=== PATIENT | female | born 1970 | race Caucasian/White ===

== ENCOUNTER 2017-02-14 10:50 | Inpatient (IN) | payer BC ==
--- NOTE | ~2017-02-14 | CR63 ---
[facility] A Service of [facility] RADIOLOGY TEXT RESULTS PATIENT: TONNY HENSON LOCATION: [facility] 576-01 : 72 UNIT #: [id number] AGE: [address]: DIMA ROMERO MD SEX: F ORDER DR: [id number] [place] [address] [id number] E MR#: [id number] Acc #: [id number] NAME: TONNY HENSON : 1970 SEX: F STUDY DATE/TIME: 02/14/2017 13:36 UNIT: SED ROOM: STUDY DESCRIPTION: CR Chest 2 View Attending Physician: Renzo Ray M.D. Ordering Physician: Renzo Ray M.D. Primary Care Physician: No Primary Care Physician MEDICAL IMAGING REPORT This report is preliminary unless electronic signature is present. EXAM Chest 2 views 02/14/2017 1336 hours CLINICAL HISTORY 46-year-old woman with cough, shortness of air, swelling in both lower extremities and feet for 1-2 weeks. History of prior kidney cancer. COMPARISON Chest x-ray 12/07/[address] abdomen and pelvis 02/14/2017. FINDINGS Upright PA and lateral views of the chest demonstrate slightly low lung volumes. Heart size is within normal limits. Hilar contours are normal. There is elevation of the right hemidiaphragm similar to the prior study. There is no definite acute pulmonary density or pleural effusion. IMPRESSION No acute cardiopulmonary findings. Stable elevation of the right hemidiaphragm. Dictated by... Bernarda Alberto M.D. THIS IS AN ELECTRONICALLY VERIFIED REPORT Bernarda Alberto M.D. at 02/14/2017 7:31 PM AMELIA/mariela TD: 02/14/2017 16:12 JOB #: [id number] MEDICAL IMAGING REPORT [facility] A Service of [facility] RADIOLOGY TEXT RESULTS PATIENT: TONNY HENSON LOCATION: [facility] 576-01 : 72 UNIT #: [id number] AGE: [address]: DIMA ROMERO MD SEX: F ORDER DR: Page 1 of 1
--- NOTE | ~2017-02-14 | CO ---
Unit #: [id number] #: [id number] Patient: TONNY HENSON [id number] [facility] [address] [place], [place] [address] [id number] I MR#: [id number] NAME: TONNY HENSON ROOM: 576 Age: 46 Sex: F Admission Date: 02/14/2017 : 1970 Attending Physician: Tejal Negron M.D. Primary Care Physician: Primary Care Physician No Consultation Date: 02/15/2017 CONSULTATION REPORT CHIEF COMPLAINT Jaundice. HISTORY OF PRESENT ILLNESS This is a 46-year-old lady, who went to the ER yesterday at [facility] for jaundice and swelling. She was transferred to [facility] for further workup. She first noticed that a couple of weeks ago that started with some scleral icterus. She then became progressively more jaundice and noted dark urine. She also complained of some edema in her bilateral lower extremities. We were asked to see the patient specifically for gallstones. She denies any trouble eating and denies any nausea. She has some mild abdominal discomfort when question specifically about it, but states there is nothing she would have sought medical attention for. PAST SURGICAL HISTORY She has had a prior gastric bypass and a left partial nephrectomy secondary to renal cell cancer. PAST MEDICAL HISTORY Significant for fatty liver and psoriasis. ALLERGIES She has no known drug allergies. MEDICATIONS Please see med rec list for list of medications. FAMILY HISTORY Negative for cancer. SOCIAL HISTORY She has a daily one intake. History of tobacco use in the past, but none now. She tested positive for marijuana on her tox screen. REVIEW OF SYSTEMS Significant for dark urine. She denies any weight loss or fevers. PHYSICAL EXAMINATION VITAL SIGNS: Temperature is 98.7, heart rate is 91, respiratory rate is 20, blood pressure is 113/58. HEENT: She has scleral icterus. There is no other trauma. NECK: Without masses or bruits. LUNGS: Show good breath sounds bilaterally with equal air exchange. CARDIAC: Shows regular rate and rhythm without murmur. Unit #: [id number] #: [id number] Patient: TONNY HENSON ABDOMEN: Soft. She has some mild distention. There is no tenderness to deep palpation. There are no masses. EXTREMITIES: Without edema or cyanosis. NEUROLOGIC: She is alert and oriented. There are no focal deficits. SKIN: Exam confirms jaundice. DIAGNOSTIC STUDIES LABORATORY RESULTS: She has multiple lab abnormalities including potassium 2.8. Ammonia of 64, albumin of 1.8, total bilirubin of 18, alkaline phosphatase 217. Hemoglobin of 7.2, white count of 8, and platelet count of 122. IMAGING STUDIES: CT scan showed hepatomegaly with some body wall edema and some abdominal and pelvic ascites. There was some gallstones versus sludge identified. She has also undergone prior left nephrectomy. Her ultrasound showed some mild gallbladder wall thickening and prominence of the main bile duct and it showed gallbladder findings more consistent with sludge and then discrete stones. OVERALL IMPRESSION This is a 46-year-old lady, who likely has alcoholic cirrhosis. She also has gallstones which were likely incidental. My plan is to check a HIDA scan to rule out acute cholecystitis. We will also follow up on hepatitis panel. She is on a potassium protocol and GI will see her for long-term management of her cirrhosis. Further recommendations are to follow. Dictated by... Theo Forman III, M.D. VCL/kezia TD: 02/16/2017 06:21 JOB #: [id number] CONSULTATION REPORT Page 1 of 1 X Theo Forman III, MD CONSULTATION REPORT
--- NOTE | ~2017-02-14 | NM21 ---
[facility] A Service of [facility] RADIOLOGY TEXT RESULTS PATIENT: TONNY HENSON LOCATION: [facility] 576-01 : 72 UNIT #: [id number] AGE: [address]: Tejal Negron MD SEX: F ORDER DR: [id number] [facility] [address] [facility]. [place], [place] [address] [id number] I MR#: [id number] Acc #: [id number] NAME: TONNY HENSON : 1970 SEX: F STUDY DATE/TIME: 02/16/2017 8:20 UNIT: [facility] ROOM: [facility] STUDY DESCRIPTION: NM Hepatobiliary W GB Attending Physician: Tejal Negron M.D. Ordering Physician: Theo Forman III, M.D. Primary Care Physician: No Primary Care Physician MEDICAL IMAGING REPORT This report is preliminary unless electronic signature is present EXAM Radionuclide biliary scan. HISTORY Abdominal pain, jaundice, short of air, swelling, fatigue for 3 weeks. No known trauma. TECHNIQUE Following intravenous administration of 6 mCi technetium-99m Choletec, static images of the abdomen were obtained at 30-minute intervals for 60 minutes. 90 and 120-minute images also obtained. FINDINGS The study is abnormal. It is viewed in conjunction with CT examination 02/14/2017 and gallbladder ultrasound 02/15/2017. At 15 minutes post administration, there is radiotracer seen throughout the liver. Radiotracer persists throughout the liver during the full 2 hours of the examination. This suggests significant underlying hepatic metabolic abnormality. Along the medial aspect of the mid liver at anticipated location of jill hepatis based on prior CT examination, there is a focal area of tracer accumulation seen at 60 minutes post administration. This persists, relatively unchanged throughout the remainder of the examination. On the basis of this examination, I cannot determine if this is gallbladder or common bile duct. Lateral views of the abdomen were not obtained to assist in differentiation. There is no structure seen which corresponds to the volume of the gallbladder on either the prior ultrasound or CT examination. I cannot on the basis of this examination exclude the possibility of acute cholecystitis. There does appear to be some passage of radiotracer into the bowel. Please correlate with the patient's clinical presentation and laboratory data. Weight should be given the clinical assessment relative to possibility of cholecystitis. IMPRESSION [facility] A Service of [facility] RADIOLOGY TEXT RESULTS PATIENT: TONNY HENSON LOCATION: [place] [address] : 72 UNIT #: [id number] AGE: [address]: Tejal Negron MD SEX: F ORDER DR: 1. Abnormal examination. Please see the complete dictation above for full details. Radiotracer remains largely within the liver throughout the full 2 hours of imaging. This suggests significant underlying hepatic metabolic abnormality. There is some passage of radiotracer into the bowel, indicating patency of the common bile duct. 2. Beginning at 60 minutes post tracer administration, there is a focal area of radiotracer seen in the inferior aspect of the central liver in the region of jill hepatis seen on CT examination. This focus of radiotracer activity does not alter between 60 and 120 minutes. It does not have an appearance concordant with the volume of the gallbladder on either the prior CT or ultrasound. It is possible that this represents radiotracer within the common duct. Given the limitations of this examination, I cannot exclude the possibility of acute cholecystitis in this patient. Please correlate with the patient's clinical presentation and laboratory data. Weight should be given clinical assessment relative to possibility of acute cholecystitis. Dictated by... Denilson Fox M.D. THIS IS AN ELECTRONICALLY VERIFIED REPORT Denilson Fox M.D. at 02/17/2017 6:12 PM TANG/rocio TD: 02/16/2017 13:40 JOB #: [id number] MEDICAL IMAGING REPORT Page 1 of 1 COPY
--- NOTE | ~2017-02-14 | XA166 ---
[facility] A Service of [facility] RADIOLOGY TEXT RESULTS PATIENT: TONNY HENSON LOCATION: [facility] [address] : 72 UNIT #: [id number] AGE: [address]: Tejal Negron MD SEX: F ORDER DR: [id number] [facility] [address]. [place], [place] [address] [id number] I MR#: [id number] Acc #: [id number] NAME: TONNY HENSON : 1970 SEX: F STUDY DATE/TIME: 02/15/2017 14:58 UNIT: [facility] ROOM: [facility] STUDY DESCRIPTION: XA PICC Line Placement WO Port Attending Physician: Tejal Negron M.D. Ordering Physician: Tejal Negron M.D. Primary Care Physician: No Primary Care Physician MEDICAL IMAGING REPORT This report is preliminary unless electronic signature is present EXAM PICC line placement under ultrasound and fluoroscopy. HISTORY SUPPLIED No venous access. PRE-PROCEDURE The procedure was explained to the patient and/or patient fuels sales representative including risks, benefits, potential complications and potential for alternative forms of treatment. Informed consent was obtained, and prior to initiating the procedure a formal timeout procedure was performed. PROCEDURE Using full standard sterile barrier technique, including caps, gowns, gloves, masks, as well as sterile skin preparation and standard sterile draping, the right arm (brachial vein) was prepped and draped in the usual fashion, and real-time sterile ultrasound guidance was used to localize an arm vein and to confirm vessel patency. A hard copy ultrasound image was recorded. After local anesthesia with 1% Xylocaine, the vein was punctured using real-time sterile ultrasound guidance, and an 0.018 guidewire was advanced into the superior vena cava, using fluoroscopic guidance. A 5-Azerbaijani dual-lumen (37 cm trim length) PICC was then measured and deployed with the tip positioned in the cavoatrial junction. The position of the line was documented with a radiographic image. The line was secured in place with an adhesive dressing and an antibiotic patch was applied. Total fluoro time was 0.2 minutes. Exposure 2 mGy air derma. Single spot radiograph was obtained. IMPRESSION Successful placement of a 5-Azerbaijani dual-lumen (37 cm trim length) PowerPICC via the right arm (brachial vein) under ultrasound and STS. [facility] A Service of [facility] RADIOLOGY TEXT RESULTS PATIENT: TONNY HENSON LOCATION: [facility] 576-01 : 74 UNIT #: [id number] AGE: [address]: Tejal Negron MD SEX: F ORDER DR: fluoroscopic guidance. The tip of the PICC is in good position in the cavoatrial junction. A single fluoroscopic spot image was obtained. Dictated by... Denilson Stallworth M.D. THIS IS AN ELECTRONICALLY VERIFIED REPORT Denilson Stallworth M.D. at 02/17/2017 7:14 AM VANI/shankar TD: 02/15/2017 18:05 JOB #: [id number] MEDICAL IMAGING REPORT Page 1 of 1 COPY
--- NOTE | ~2017-02-14 | CO ---
Unit #: [id number] #: [id number] Patient: TONNY HENSON [id number] [address] [place], [place] [address] [id number] I MR#: [id number] NAME: TONNY HENSON ROOM: 6 Age: 46 Sex: F Admission Date: 02/14/2017 : 1970 Attending Physician: Tejal Negron M.D. Primary Care Physician: No Primary Care Physician Consultation Date: 02/16/2017 CONSULTATION REPORT REASON FOR CONSULTATION Hyponatremia. HISTORY OF PRESENT ILLNESS Patient is a 46-year-old white female, who is previously status post left partial nephrectomy for renal cell CA, history of fatty liver, and transferred for jaundice. Also, complaints of fatigue and swelling in the body, especially in the feet and ankles. No history of abdominal pain. No history of fevers or chills. No history of diarrhea. No history of vomiting. There is a vague history of bleeding per rectum. The patient on admission was noted to have a sodium level of 121 with a bilirubin of 23.3. CT scan revealing diffuse hepatic steatosis and markedly enlarged to 22 cm. Also, sludge in the gallbladder with pericholecystic fluid secondary to ascites versus acute cholecystitis for which (1) is working her up. Patient has been started on Lasix this morning. Sodium level is 129. Patient does have previous history of gastric bypass. No noted NSAIDs, thiazides, SSRIs in her home medications. PAST MEDICAL HISTORY 1. Renal cell CA, status post left partial nephrectomy two years ago. 2. History of fatty liver. 3. Gastric bypass. 4. History of psoriasis. ALLERGIES No known drug allergies. HOME MEDICATIONS 1. B12. 2. P.r.n. ibuprofen. FAMILY HISTORY Unremarkable for end-stage renal disease or any liver problems. SOCIAL HISTORY Patient lives at home and drinks regularly and has been for several years, is a reformed smoker. No history of intravenous drug use. REVIEW OF SYSTEMS CARDIOVASCULAR: No chest pain. RESPIRATORY: Cough with minimal expectoration. GASTROINTESTINAL: As above. GENITOURINARY: No hematuria. No dysuria. Unit #: [id number] #: [id number] Patient: TONNY HENSON PHYSICAL EXAMINATION GENERAL: Patient is awake, alert, and oriented. VITAL SIGNS: Temperature is 98.4, heart rate is 93/min, blood pressure 102/52, saturation 98%. HEENT: Head is atraumatic. Extraocular movements are intact. Sclerae are markedly icteric with jaundiced skin. Nose: No discharge. Ears: No discharge. NECK: Supple. There is no elevation of the JVD. LUNGS: The chest is clear. Air entry is equal bilaterally. Breathing is vesicular in nature. HEART: S1, S2 audible. There is no S3, no S4. ABDOMEN: Soft. There is no organomegaly. No guarding. No rigidity. No rebound tenderness. EXTREMITIES: There is 2 to 3+ edema. CENTRAL NERVOUS SYSTEM: Motor system is intact. Cerebellar system is intact. DIAGNOSTIC STUDIES LABORATORY: The urine culture has gram-positive and gram-negative ros, likely contaminated specimen. The sodium is 129, potassium 3.4, chloride 99, CO2 of 20, glucose 87, creatinine 0.6, BUN 13, calcium 8.5. Total bilirubin 20 with an albumin of 2, phosphorous 2.7, magnesium is 1.8. WBC 9.9, H and H 8.1 and 23.9 with a platelet count of 149,000. IMPRESSION 1. Hyponatremia, likely secondary to marked increase in (2) and hyperosmolar hyponatremia. Will restrict the IV fluids and p.o. fluids to 1 L a day, increase the Lasix to 40 mg daily, and request to refrain from thiazides and nonsteroidal anti-inflammatory use. I will check urine and serum osmolality for ADH state. 2. Hypokalemia, likely nutritional. Supplement potassium and increase to give on a scheduled basis concomitantly with Bumex. Supplement magnesium and phosphorous per levels. 3. Hyperbilirubinemia: Attributed to cirrhosis/nonalcoholic steatohepatitis as per GI evaluation. 4. Pericholecystic fluid and sludge being worked up with surgery and is scheduled for HIDA scan. 5. Nonanion gap metabolic acidosis, likely underlying gastrointestinal losses contributing to that. 6. Macrocytic anemia with decreased folate levels, folic acid deficiency. Patient has been started on folate. 7. Hypertension: Will follow the patient. Dictated by... Ken Zelaya TD: 02/16/2017 12:00 JOB #: [id number] Unit #: [id number] #: [id number] Patient: TONNY HENSON CONSULTATION REPORT Page 1 of 1 X Warren Kimbrough MD CONSULTATION REPORT
--- NOTE | ~2017-02-14 | CO ---
Unit #: [id number] #: [id number] Patient: TONNY HENSON [id number] [facility] [address] [place] [address] [facility]. [place], [place] [address] [id number] I MR#: [id number] NAME: TONNY HENSON ROOM: 576 Age: 46 Sex: F Admission Date: 02/14/2017 : 1970 Attending Physician: Tejal Negron M.D. Primary Care Physician: No Primary Care Physician Consultation Date: 02/15/2017 CONSULTATION REPORT REASON FOR CONSULTATION Deep jaundice. HISTORY Ms. Henson is a very pleasant 46-year-old white female. 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 Her job is not very active, and she mostly has to walk around a little bit and then sit a room watching a computer. She has not worked for at least 2 weeks. She presents with worsening jaundice and generalized anasarca with edema of lower extremities, swelling of lower extremities and extreme fatigue. Upon admission she has been found to have deep jaundice, along with coagulopathy and hypokalemia. The patient denies any history of overt gastrointestinal bleed, such as hematemesis, melena or hematochezia. She was initially seen at [facility]. From there she was transferred to [facility]. The patient does drink quite heavily on most days after work and has been doing it for many years, along with her fiance, who also drinks quite a bit. PAST MEDICAL HISTORY Her past medical history is significant for history of fatty liver, gastric bypass surgery about 15 years ago. She has had psoriasis, oral surgery, renal cell carcinoma status post partial nephrectomy 2 years ago. ALLERGIES She has no known drug allergies. MEDICATIONS Home medications include occasional ibuprofen, milk thistle, B12 and Jazmin. FAMILY HISTORY None of colon or pancreatic cancer or liver disease. SOCIAL HISTORY The patient lives with her fiance. She drinks almost 3/4 to 1 bottle of wine on a daily basis and has been drinking heavily for many years. She does not smoke at the present but used to smoke in the past. Has never used intravenous drugs. REVIEW OF SYSTEMS A detailed review of organ systems reveals new onset of jaundice and extreme fatigue. There is no history of any significant weight loss. No history of fevers, chills or rigors. No history of headache, seizures, Unit #: [id number] #: [id number] Patient: NATIVIDAD,TONNY chest pain or syncope. No history of cough, expectoration or hemoptysis. There is history of shortness of breath. No history of dysuria, hematuria or polyuria. No history of focal seizures or extremity weakness. No history of skin rash, aphthous ulcers in the mouth or reactive arthritis. PHYSICAL EXAMINATION GENERAL: On examination, she appears quite pleasant, comfortable and obese. She has loaw-hs-nhnybcfw pallor, there being deep icterus, no lymphadenopathy and grade 3 pitting peripheral edema. VITAL SIGNS: Her vital signs indicate a temperature of 98.4, pulse 93 per minute and regular, respiratory rate 16, and blood pressure is 102/52. She weighs 210 pounds, and we do not have any baseline weight. CARDIOVASCULAR: Normal heart sounds. No murmurs on auscultation. RESPIRATORY: The lungs reveal normal breath sounds, good air entry. ABDOMEN: The abdomen is soft, obese and nontender. Minimal ascites might be present. The liver edge is palpable about 4 cm below the right costal margin, firm, smooth and nontender. The spleen is not palpable. Bowel sounds are normal. No area of rigidity, rebound or guarding is felt. (1) normal. DIAGNOSTIC STUDIES LABORATORY: Lab evaluation shows patient with total bilirubin of 18.3. It was 23 yesterday. There is 50/50 split between direct and indirect hyperbilirubinemia. Her AST is 191, ALT 41, alkaline phosphatase 217. Serum potassium is 2.8, and sodium is 124. Blood glucose is 84. BUN and creatinine are normal. Hemoglobin is 7.2 with an MCV of 111, and platelet count is 122. INR is 1.5. Hepatitis serology is pending. CLINICAL IMPRESSION Patient most likely has advanced liver disease and cirrhosis as a result of alcoholic hepatitis. Other possibilities include FARFAN related cirrhosis and the two may be concomitantly present. The patient may also have autoimmune hepatitis. She does have significant hyponatremia, hypokalemia, coagulopathy and thrombocytopenia indicating advanced liver disease. Lastly, she has severe intrahepatic cholestasis as evidenced by bilirubin. MANAGEMENT PLAN 1. The single most important element in her management and long-term prognosis is complete and total sobriety. Considerable time was spent with the patient explaining that she has to completely stop alcohol, and any kind of substitution with low alcohol substitutes will not work. Also, cutting down on alcoholic intake will not work, as she has proven herself to be an alcoholic. 2. Will treat her with low dose of diuretics, starting her on Aldactone and Lasix at doses of 100 mg and 40 mg for now. Also will obtain an upper endoscopy to look for esophageal varices. Lastly, the patient should be on a 2-gram sodium diet with high protein carbohydrates. Will also obtain a serum alpha-fetoprotein, smooth-muscle antibody and DARIN to rule out autoimmune hepatitis. The results of hepatitis profile are pending. As these labs are likely to take 5-7 days, it would be reasonable for the patient to be discharged home and follow up in the office for these results. Thank you very much for asking me to see this pleasant patient, and I appreciate the consult. Unit #: [id number] #: [id number] Patient: TONNY HENSON Dictated by... Ken Rivas/doc TD: 02/18/2017 12:07 JOB #: [id number] CONSULTATION REPORT Page 1 of 1 X Gregory Castillo MD X CONSULTATION REPORT
--- NOTE | ~2017-02-14 | DS ---
Unit #: [id number] #: [id number] Patient: TONNY HENSON [id number] [address] [address] [id number] I MR#: [id number] NAME: TONNY HENSON ROOM: 576 Age: 46 Sex: F Admission Date: 02/14/2017 : 1970 Discharge Date: Attending Physician: Tejal Negron M.D. Primary Care Physician: No Primary Care Physician DISCHARGE SUMMARY DISCHARGE DIAGNOSES 1. Cirrhosis, likely terminal with long-term prognosis very poor. 2. Likely nonalcoholic steatohepatitis. 3. Fluid overload from cirrhosis. 4. Anemia of chronic iron deficiency. 5. Abnormal ultrasound on HIDA scan showing acute cholecystitis. According to GI, patient has gallbladder wall thickening likely from cirrhosis, very high risk of endoscopic retrograde cholangiopancreatography or cholecystectomy. 6. Hypernatremia secondary to cirrhosis. 7. Coagulopathy from cirrhosis. 8. Hypokalemia. 9. Alcohol dependence. 10. Hypothyroidism. 11. Severe protein malnutrition. 12. Low folate level. 13. Hepatic encephalopathy on admission. 14. Renal cell carcinoma, status post partial nephrectomy two years ago. 15. History of psoriasis. 16. History of morbid obesity. 17. History of gastric bypass in 2001. 18. Fatty liver. 19. Metabolic acidosis. 20. Mild acute pancreatitis present on admission. CONSULTATIONS 1. Dr. Gregory Castillo. 2. LSA. 3. Dr. Warren Kimbrough. PROCEDURE None. DIAGNOSTIC STUDIES LABORATORY: Free T4 is 0.94. Free T3 is 2.1. WBC 10.2, hemoglobin 8, platelets 135,000. Urine culture negative. TSH 7.40. Folate level 3.6. Vitamin B12 at 1063. Ammonia 64. Urine drug screen positive for marijuana. BNP 179. Lactic acid 1.7. IMAGING: Ultrasound of the abdomen shows gallbladder filled with sludge. No discrete stones. Gallbladder wall thickening present, likely positive for acute cholecystitis. HIDA scan shows abnormal, likely acute cholecystitis. Unit #: [id number] #: [id number] Patient: TONNY HENSON Ultrasound of the extremities negative for DVT. CAT scan of the abdomen and pelvis shows hepatomegaly, diffuse hepatic steatosis. Generalized abdominal wall edema present. Gallbladder sludge with gallbladder wall thickening present. Mild splenomegaly present. ALLERGIES None. DISCHARGE MEDICATIONS 1. Lactulose 20 g p.o. daily. 2. Robitussin 10 mL three times daily p.r.n. cough over the counter. 3. Lasix 40 daily. 4. Aldactone 100 daily. 5. Potassium 40 mEq daily. 6. Synthroid 25 mcg p.o. daily. 7. Folic acid 1 mg daily. 8. Albuterol MDI two puffs inhalation four times daily p.r.n. shortness of breath. HOSPITALIZATION COURSE A 46 year old admitted because of jaundice. Cirrhosis, likely end stage from alcohol. Also, she might have FARFAN with severe jaundice and likely portal hypertension. Patient is seen by Dr. Gregory Castillo. Patient was started on Lasix and spironolactone. Hepatic encephalopathy with mild elevated ammonia. Lactulose has been given. Currently, patient is alert and oriented x3. Abnormal gallbladder wall thickening with HIDA scan abnormality. The patient is seen by LSA and Dr. Gregory Castillo. Patient is high risk of ERCP or high risk of cholecystectomy. Currently, continue with medical management. Patient is tolerating diet okay. No abdominal pain. Wants to go home. Tolerating diet. No vomiting. Hypernatremia, likely from cirrhosis. Lasix has been started, currently stable. Coagulopathy secondary to cirrhosis. Anemia, acute on chronic iron deficiency, no active bleeding. Hypokalemia: Replace with p.o. potassium. Hypothyroidism: Started on Synthroid. Low folate level: Started on folic acid. Alcohol dependence: Patient currently not in delirium tremens. DISPOSITION Patient will be discharged home after seen by Dr. Gregory Castillo. FOLLOWUP 1. Follow with Dr. Warren Kimbrough, nephrology, in two weeks' time. 2. Follow with Dr. Castillo in three weeks' time. Unit #: [id number] #: [id number] Patient: TONNY HENSON PROGNOSIS Long-term prognosis is poor because of cirrhosis. Patient does have alcohol dependence and marijuana abuse. Discharge time taken is 35 minutes. Dictated by... Ken Pepe TD: 02/17/2017 17:13 JOB #: [id number] DISCHARGE SUMMARY Page 1 of 1 X Tejal Negron MD DISCHARGE SUMMARY
--- NOTE | ~2017-02-14 | HP ---
Unit #: [id number] #: [id number] Patient: TONNY HENSON [id number] [address] [place], [place] [address] [id number] I MR#: [id number] NAME: TONNY HENSON ROOM: 576 Age: 46 Sex: F Admission Date: 02/14/2017 : 1970 Attending Physician: Blanca Kimbrough M.D. Primary Care Physician: No Primary Care Physician HISTORY AND PHYSICAL CHIEF COMPLAINT Jaundice, hyponatremia. HISTORY This pleasant 46-year-old female status post partial nephrectomy for renal cell cancer, with history of "fatty liver" and gastric bypass surgery, was transferred from [facility] emergency department for jaundice. The patient states that she was in her usual state of health until about three weeks prior to admission. Around that time she noted increasing fatigue, dyspnea on exertion, pedal edema, and that she at some point appeared to be more yellow with dark urine; denies abdominal pain with the above, states that she is always cold, does have a productive cough which is mainly upper and productive of yellow sputum. Upon direct questioning also admits to hematochezia with blood mixed in with the stool. She presented to [facility] this morning where labs show a sodium of 121, bilirubin of 23.3, macrocytic anemia. On rectal examination she has trace heme positive jelly. A CT scan performed shows significant hepatomegaly up to 22.8 cm with diffuse hepatic steatosis and evidence of edema. There is a small quantity of gallstones and/or in gallbladder sludge. Patient is status post gastric bypass. She was drinking two large glasses of wine until about three weeks ago when she stopped drinking, denies previous injectable drug use. She was given 30 mL of lactulose for an elevated ammonia level of 90. She has noted some recent confusion as well, was also given a bolus of IV fluids. PAST MEDICAL HISTORY 1. Renal cell cancer, status post partial nephrectomy two years ago. 2. Fatty liver. 3. Gastric bypass 2001. 4. Oral surgery. 5. Psoriasis. ALLERGIES None. HOME MEDICATIONS B12, milk thistle, Jazmin and occasional ibuprofen. Patient does not use Tylenol. FAMILY HISTORY Family history is negative for liver disease. Unit #: [id number] #: [id number] Patient: TONNY HENSON SOCIAL HISTORY The patient lives with her fiance. Until three weeks ago she was drinking two large glasses of wine, does admit to brief alcohol abuse many years ago which was only for about a year or so, remote history of tobacco use, has never used injectable drugs. REVIEW OF SYSTEMS Notable for some sinus drainage and purulent upper cough, renal cell cancer, fatty liver, abovementioned surgeries, pedal edema, shortness of breath, some recent confusion and dark urine. All other systems were reviewed and are otherwise negative. PHYSICAL EXAMINATION GENERAL: Very pleasant 46-year-old female who is moderately obese, currently in no acute distress. VITAL SIGNS: Her temperature is 97.5. Pulse 89. Respirations 16. Blood pressure 144/86. O2 saturation 100% on room air. HEENT: Eyes PERRLA. Extraocular muscles are intact. Scleral icterus is noted. Pharynx is benign. NECK: Supple, without adenopathy or thyromegaly. CHEST: A few crackles at the bases. CARDIAC: Normal S1 and S2, without definite murmur. ABDOMEN: Bowel sounds are present. Well-healed scar noted. Patient does have hepatomegaly on exam. Nontender abdomen. No masses. EXTREMITIES: With at least 2+ bilateral pedal edema, negative Homans sign. SKIN: Skin reveals telangiectasias. NEUROLOGIC EXAM: Patient is awake, alert, oriented. Her cranial nerves are intact. There is equal strength throughout. No asterixis on exam. ANO-RECTAL: Of note rectal examination no masses. Jelly was trace heme positive. DIAGNOSTIC STUDIES LABORATORY: Admission labs show hematocrit is 25.4 without previous values for comparison, MCV is 111, normal white count, platelet count. SMA-12: Sodium 121, chloride 89, CO2 20, calcium 8.3, albumin 2.4, bilirubin is 23 both direct and indirect are elevated, AST 208, ALT 45, alkaline phosphatase 275, amylase is 72, lipase 124, BNP 179, ammonia level 90, lactic acid is normal. Urine tox screen positive for marijuana. Urinalysis unremarkable except for 1+ bacteria with a few squamous cells seen. IMAGING: Chest x-ray stable elevation of the right hemidiaphragm. CT scan of the abdomen and pelvis. Hepatomegaly with 22.8 cm liver diffuse hepatic steatosis. Generalized body wall edema with small quantity of abdominal and pelvic ascites. Small quantity of gallstones and/or gallbladder sludge. Trace pericholecystic fluid. Mild atelectatic changes. Mild splenomegaly. Partial nephrectomy. Mildly enlarged central mesenteric root lymph nodes which are nonspecific. Questionable colitis. ASSESSMENT 1. Jaundice in this patient with likely FARFAN (nonalcoholic steatohepatitis) and possibly liver disease related to alcohol use, but need to rule out other etiologies as well. 2. Bilateral pedal edema. 3. Likely hypervolemic hyponatremia. Unit #: [id number] #: [id number] Patient: TONNY HENSON 4. Hepatic encephalopathy. 5. Macrocytic anemia with complaints of hematochezia and trace heme positive stool. 6. Purulent sinus drainage with negative chest x-ray. 7. Complaints of dyspnea. 8. Status post partial nephrectomy for renal cell cancer. 9. Gastric bypass surgery. 10. Psoriasis. PLANS 1. Anemia workup. 2. Check hepatitis profile, DARIN, iron stores, gallbladder ultrasound, and ask GI to see in consultation. 3. Obtain TSH. 4. Check Dopplers of the legs. 5. Will order low dose Lasix for now as patient does seem to be fluid overloaded. 6. Lactulose, 7. SCDs for DVT prophylaxis. 8. Obtain EKG and echo. 9. Flonase nasal spray and doxycycline. 10. Further workup and consultants depending on above. Dictated by Adeline Hernandez M.D. AML/cf TD: 02/14/2017 21:00 JOB #: [id number] HISTORY AND PHYSICAL Page 1 of 1 X Adeline Hernandez MD X HISTORY AND PHYSICAL
--- NOTE | ~2017-02-14 | US84 ---
[id number] [facility] [address] [place], [place] [address] [id number] I MR#: [id number] Acc #: [id number] NAME: TONNY HENSON : 1970 SEX: F STUDY DATE/TIME: 02/15/2017 9:54 UNIT: [place] ROOM: 576 STUDY DESCRIPTION: US LE Veins Complete Mendoza Stdy Attending Physician: Tejal Negron M.D. Ordering Physician: Adeline Hernandez M.D. Primary Care Physician: Primary Care Physician No MEDICAL IMAGING REPORT This report is preliminary unless electronic signature is present EXAM Bilateral lower extreme Doppler venous ultrasound DATE: 02/15/2017 HISTORY Bilateral lower extremity swelling/edema and pain in the feet for two weeks COMPARISON None. TECHNIQUE Venous ultrasound examination of both lower extremities was performed using grayscale, spectral Doppler and color flow Doppler imaging. FINDINGS The examination is negative. There is no evidence of deep venous thrombus from the groin to the lower calf bilaterally. Visualized greater saphenous veins are also patent. IMPRESSION Negative examination. No evidence of lower extremity deep venous thrombosis. Dictated by... Lois Kraft M.D. THIS IS AN ELECTRONICALLY VERIFIED REPORT Lois Kraft M.D. at 02/16/2017 8:59 AM PRABHAKAR/ulises TD: 02/15/2017 13:52 JOB #: [id number] MEDICAL IMAGING REPORT Page 1 of 1 COPY
--- NOTE | ~2017-02-14 | EKG ---
PATIENT: TONNY HENSON UNIT #: [id number] Ventricular Rate: 94 BPM Atrial Rate: 94 BPM P-R Interval: 164 ms QRS Duration: 86 ms Q-T Interval: 566 ms QTC Calculation(Bezet): 707 ms P [place]: 48 degrees Calculated R [place]: 76 degrees Calculated T [place]: 78 degrees Diagnosis Line: Normal sinus rhythm Diagnosis Line: Low voltage QRS Diagnosis Line: Prolonged QT Diagnosis Line: Abnormal ECG Diagnosis Line: No previous ECGs available Diagnosis Line: Confirmed by SUSIE COHEN MD ([id number]) on Diagnosis Line: 02/15/2017 9:19:31 PM INTERPRETING MD: JUNE
--- NOTE | ~2017-02-14 | CT2 ---
[facility] A Service of [facility] RADIOLOGY TEXT RESULTS PATIENT: TONNY HENSON LOCATION: [facility] 576-01 : [birth year] UNIT #: [id number] AGE: [address]: Tejal Negron MD SEX: F ORDER DR: [id number] [address] [address] [id number] E MR#: [id number] Acc #: [id number] NAME: TONNY HENSON : 1970 SEX: F STUDY DATE/TIME: 02/14/2017 13:46 UNIT: SED ROOM: STUDY DESCRIPTION: CT Abd and Pelv W Cont Attending Physician: Renzo Ray M.D. Ordering Physician: Renzo Ray M.D. Primary Care Physician: No Primary Care Physician MEDICAL IMAGING REPORT This report is preliminary unless electronic signature is present. EXAM CT abdomen and pelvis with contrast, 02/14/2017. HISTORY 46-year-old female with bilateral extremity and foot swelling/edema with shortness of breath for 1-2 weeks. History of kidney cancer. History of gastric bypass. COMPARISON None. PROCEDURE 5-mm axial images from the lung bases through the lesser trochanters after intravenous and enteric contrast administration. Sagittal and coronal reformatted images were obtained. FINDINGS There is generalized body wall edema and small quantity ascites is present within the abdomen, greatest adjacent to the liver, and layering dependently within the pelvis. There are central congestive type changes within the mesentery. Mildly prominent central mesenteric root lymph nodes are present, 1 of the largest measuring up to 1.4 x 1.1 cm. Scattered atelectatic type changes are present within the lung bases without consolidation. No basilar effusion is identified. Liver is enlarged up to 22.8 cm craniocaudal and appears diffusely steatotic with more focal geographic fatty deposition within the enlarged caudate lobe. Spleen is enlarged measuring 14 cm craniocaudal. Gastric bypass changes are present, and there is no evidence of high-grade large or small bowel obstruction. There is mild thickening and questionable inflammatory change of the hepatic flexure of the colon. [facility] A Service of [facility] RADIOLOGY TEXT RESULTS PATIENT: TONNY HENSON LOCATION: [facility] 576-01 : [birth year] UNIT #: [id number] AGE: [address]: Tejal Negron MD SEX: F ORDER DR: There are clustered small ventral abdominal hernias in the upper abdomen containing only fat. There is a dominant ventral hernia in the supraumbilical midline upper abdomen containing only omental fat, and the hernia sac measures 6.1 x 6.1 cm. There is a defect in the left upper renal pole thought to represent some previous partial nephrectomy, and there is no evidence of local disease recurrence. Adrenal glands and pancreas are normal. Small gallstones versus gallbladder sludge is present without evidence of abnormal gallbladder wall thickening or biliary dilation. PELVIS: Trace pelvic free fluid. Urinary bladder, uterus, and rectum are normal. Generalized body wall edema. No acute osseous abnormalities. IMPRESSION 1. Hepatomegaly up to 22.8 cm, with diffuse hepatic steatosis. 2. Generalized body wall edema with small quantity of abdominal and pelvic ascites. 3. Small quantity of gallstones and/or gallbladder sludge. There is trace pericholecystic fluid which may be related to underlying ascites, but the gallbladder wall itself does not appear appreciably thickened or inflamed. This is not included in the body of the report. 4. Mild atelectatic changes within the lung bases. 5. Mild splenomegaly. 6. Partial left nephrectomy. No evidence of local disease recurrence in this patient with a history of renal cell carcinoma. 7. There are mildly enlarged central mesenteric root lymph nodes which are nonspecific and are favored to represent benign reactive changes. 8. Questionable infectious/inflammatory colitis changes involving the hepatic flexure of the colon. Correlate with clinical symptoms. Dictated by... Lois Kraft M.D. THIS IS AN ELECTRONICALLY VERIFIED REPORT Lois Kraft M.D. at 02/15/2017 8:48 AM PRABHAKAR/mauricio TD: 02/14/2017 17:34 JOB #: [id number] MEDICAL IMAGING REPORT Page 1 of 1
--- NOTE | ~2017-02-14 | US67 ---
[facility] A Service of [facility] RADIOLOGY TEXT RESULTS PATIENT: TONNY HENSON LOCATION: [facility] : 74 UNIT #: [id number] AGE: [address]: Tejal Negron MD SEX: F ORDER DR: [id number] [facility] [address] [place], [place] [address] [id number] I MR#: [id number] Acc #: [id number] NAME: TONNY HENSON : 1970 SEX: F STUDY DATE/TIME: 02/15/2017 9:33 UNIT: [facility] ROOM: [facility] STUDY DESCRIPTION: US Gallbladder Attending Physician: Tejal Negron M.D. Ordering Physician: Adeline Hernandez M.D. Primary Care Physician: No Primary Care Physician MEDICAL IMAGING REPORT This report is preliminary unless electronic signature is present EXAM Right upper quadrant abdominal ultrasound INDICATIONS Jaundice today. Abnormal appearance of the gallbladder on recent CT. PROCEDURE Price-scale and Doppler imaging right upper quadrant of the abdomen COMPARISON CT from 02/14/2017 FINDINGS Pancreas obscured by bowel gas and not well seen. The liver has diffusely increased echotexture AND measures 22.1 cm in length. The gallbladder contains sludge, but no discrete stones. Gallbladder wall IS thickening up to 9 mm. Common duct measures 7 mm. Right kidney measures 13.2 cm and is unremarkable. IMPRESSION 1. The gallbladder is filled with sludge, but no discrete stones are seen. There is gallbladder wall thickening and a positive sonographic Naranjo's sign suspicious for acute cholecystitis. 2. Prominence of the common duct for the patient's age. Correlate with laboratory values. If there is concern for a distal obstructing stone, MRCP or ERCP may be helpful. 3. Pancreas obscured by bowel gas. Dictated by... Yunier Maxwell M.D. THIS IS AN ELECTRONICALLY VERIFIED REPORT [facility] A Service [facility] RADIOLOGY TEXT RESULTS PATIENT: TONNY HENSON LOCATION: [facility] : 74 UNIT #: [id number] AGE: [address]: Tejal Negron MD SEX: F ORDER DR: Yunier Maxwell M.D. at 02/17/2017 1:54 PM GREGORY/mauricio TD: 02/15/2017 12:53 JOB #: [id number] MEDICAL IMAGING REPORT Page 1 of 1 COPY
--- NOTE | ~2017-02-14 | OR ---
Unit #: [id number] #: [id number] Patient: TONNY HENSON [id number] [address] [address] [id number] I MR#: [id number] NAME: TONNY HENSON ROOM: [facility] Date of Procedure: 02/16/2017 Admission Date: 02/14/2017 Surgeon: Gregory Castillo M.D. : 1970 Attending Physician: Tejal Negron M.D. OPERATIVE REPORT ADDITIONAL ATTENDING PHYSICIAN Tejal Negron M.D. PRIMARY CARE PHYSICIAN No PCP. PROCEDURES PERFORMED Upper gastrointestinal endoscopy. POSTOPERATIVE DIAGNOSIS The patient had postsurgical changes of gastrojejunal bypass. Otherwise, examination was normal. No esophageal varices were seen. RECOMMENDATIONS We will initiate 2 g sodium diet. Start on Aldactone 100 mg p.o. daily. Repeat CBC and CMP in the morning. The patient's autoantibodies are awaited to rule out autoimmune hepatitis, but the most likely etiology of her liver disease is alcohol and FARFAN related cirrhosis. SEDATION USED MAC. DESCRIPTION OF PROCEDURE Following detailed explanation of the potential risks and complications of an upper endoscopy, namely perforation, bleeding, and complications related to sedation, the patient was brought to GI lab and laid in the left lateral decubitus position. Lubricated tip of the Olympus video upper endoscope was passed through the bite block into the proximal esophagus under direct vision. The entire esophageal mucosa was examined and appeared normal. The patient did not have any evidence of esophageal varices. The scope was then advanced into the gastric remnant and postsurgical changes of gastrojejunal bypass surgery were seen. The anastomosis appeared healthy. Several inches of jejunum were intubated and appeared normal. The scope was then withdrawn in the distal esophagus. The entire esophageal mucosa was examined all the way up to pharynx. No additional findings noted. The patient tolerated the procedure without any postprocedure complications. Dictated by... Gregory Castillo M.D. Unit #: [id number] #: [id number] Patient: TONNY HENSON AURORA/kezia TD: 02/18/2017 05:35 JOB #: [id number] OPERATIVE REPORT Page 1 of 1 X Gregory Castillo MD OPERATIVE NOTE
[2017-02-14] MEDS ORDERED: NO MEDICATIONS (10:56)
[2017-02-14 11:28] LABS: BASOPHIL# 0.1 X10e3 (0-0.3); BASOPHIL% 0.9 % (0-2.5); EOSINOPHIL% 0.5 % (0.0-7.0); HEMATOCRIT 25.4 % (35.0-45.0); HEMOGLOBIN 8.7 gm/dL (12.0-16.0); LYMPHOCYTE# 4.2 X10e3 (1.0-3.5); LYMPHOCYTE% 43.8 % (17.0-45.0); MEAN CELL VOLUME 111.6 FL (83-96); MEAN CORPUSCULAR HEMOGLOBIN 38.4 PG (28-34); MEAN CORPUSCULAR HGB CONC 34.4 g/dL (30-36); MEAN PLATELET VOLUME 8.6 FL (6.5-11.5); MONOCYTE# 0.6 X10e3 (0-1.0); MONOCYTE% 6.3 % (3.0-12.0); NEUTROPHIL# 4.7 X10e3 (1.5-7.1); NEUTROPHIL% 48.5 % (40-75); PLATELET COUNT 153 X10e3 (140-420); RED BLOOD COUNT 2.27 X10e (3.90-5.30); WHITE BLOOD COUNT 9.7 X10e3 (4.0-10.5)
[2017-02-14 11:32] LABS: DIFF IND NO
[2017-02-14 11:47] LABS: AMYLASE 72 U/L (0-46); LIPASE 124 U/L (22-51)
[2017-02-14 12:29] LABS: ALBUMIN SERUM 2.4 g/dL (3.5-5.0); BILIRUBIN, DIRECT 10.2 mg/dL (0.0-0.2); GLOM FILT RATE Estimated 68.5 mL/min (>60); PROTEIN TOTAL SERUM 7.1 g/dL (6.0-8.3)
[2017-02-14 12:37] LABS: BILIRUBIN,INDIRECT 13.1 mg/dL (0.0-0.9); BILIRUBIN,TOTAL 23.3 mg/dL (0.2-2.0)
[2017-02-14 12:51] LABS: CALCIUM SERUM 8.3 mg/dL (8.4-10.2); POTASSIUM 3.9 mmol/L (3.5-5.1)
[2017-02-14 13:26] LABS: URINE SOURCE CLEAN CATCH
[2017-02-14 13:33] LABS: URINE APPEARANCE CLEAR; URINE BILIRUBIN POS (NEG); URINE BLOOD NEG (NEG); URINE COLOR AMBER; URINE GLUCOSE NEG (NORM); URINE KETONE NEG (NEG); URINE LEUKOCYTE ESTERASE NEG (NEG); URINE NITRATE NEG (NEG); URINE PROTEIN NEG (NEG); URINE SPECIFIC GRAVITY 1.015 (1.003-1.035)
[2017-02-14 13:41] LABS: MICRO INDICATED? YES
[2017-02-14 13:43] LABS: AMPHETAMINE NEG (NEG); BARBITURATES NEG (NEG); BENZODIAZEPINES NEG (NEG); COCAINE NEG (NEG); MARIJUANA POS (NEG); OPIATES NEG (NEG); TRICYCLIC ANTIDEPRESSANTS NEG (NEG); U METHADONE NEG (NEG)
[2017-02-14 13:44] LABS: CULTURE INDICATED? YES; URINE BACTERIA 1+ (NEG); URINE MUCUS PRESENT; URINE SQUAMOUS EPITHELIAL CELL FEW /[HPF]
[2017-02-15 08:10] LABS: HEMATOCRIT 20.9 % (35.0-45.0); HEMOGLOBIN 7.2 gm/dL (12.0-16.0); MEAN CELL VOLUME 111.5 FL (83-96); MEAN CORPUSCULAR HEMOGLOBIN 38.3 PG (28-34); MEAN CORPUSCULAR HGB CONC 34.3 g/dL (30-36); MEAN PLATELET VOLUME 8.4 FL (6.5-11.5); RED BLOOD COUNT 1.87 X10e (3.90-5.30); RED CELL DISTRIBUTION WIDTH 18.4 % (11.0-15.5); RETICULOCYTE 2.1 % (0.5-2.8); WHITE BLOOD COUNT 8.5 X10e3 (4.0-10.5)
[2017-02-15 08:13] LABS: INR 1.5; PARTIAL THROMBOPLASTIN TIME 32.9 SECONDS (23.5-31.3)
[2017-02-15 09:14] LABS: FOLATE (FOLIC ACID) 3.6 ng/mL (>5.8)
[2017-02-15 09:26] LABS: ALBUMIN SERUM 1.8 g/dL (3.5-5.0); BUN/CREATININE RATIO 16.66; CALCIUM SERUM 7.8 mg/dL (8.4-10.2); CREATININE SERUM 0.9 mg/dL (0.6-1.4); GLOM FILT RATE Estimated 77.8 mL/min (>60); PROTEIN TOTAL SERUM 5.2 g/dL (6.0-8.3)
[2017-02-15 09:34] LABS: POTASSIUM 2.8 mmol/L (3.5-5.1)
[2017-02-15 09:35] LABS: BILIRUBIN,TOTAL 18.3 mg/dL (0.2-2.0)
[2017-02-15 22:53] LABS: BASOPHIL# 0.1 X10e3 (0-0.3); BASOPHIL% 0.8 % (0-2.5); EOSINOPHIL# 0.1 X10e3 (0-0.7); EOSINOPHIL% 1.6 % (0.0-7.0); HEMATOCRIT 20.3 % (35.0-45.0); LYMPHOCYTE# 1.5 X10e3 (1.0-3.5); LYMPHOCYTE% 18.1 % (17.0-45.0); MEAN CELL VOLUME 111.5 FL (83-96); MEAN CORPUSCULAR HEMOGLOBIN 38.1 PG (28-34); MEAN CORPUSCULAR HGB CONC 34.2 g/dL (30-36); MEAN PLATELET VOLUME 8.5 FL (6.5-11.5); MONOCYTE# 1.1 X10e3 (0-1.0); MONOCYTE% 12.7 % (3.0-12.0); NEUTROPHIL# 5.6 X10e3 (1.5-7.1); NEUTROPHIL% 66.8 % (40-75); PLATELET COUNT 118 X10e3 (140-420); RED BLOOD COUNT 1.82 X10e (3.90-5.30); RED CELL DISTRIBUTION WIDTH 18.4 % (11.0-15.5); WHITE BLOOD COUNT 8.5 X10e3 (4.0-10.5)
[2017-02-15 22:55] LABS: DIFF IND YES; HEMOGLOBIN 6.9 gm/dL (12.0-16.0)
[2017-02-15 23:04] LABS: BUN/CREATININE RATIO 17.5; CALCIUM SERUM 7.9 mg/dL (8.4-10.2); CREATININE SERUM 0.8 mg/dL (0.6-1.4); GLOM FILT RATE Estimated 89.7 mL/min (>60)
[2017-02-15 23:58] LABS: ANISOCYTOSIS SL; HYPOCHROMIA SL; OVALOCYTES PRESENT; PLATELET ESTIMATE DECREASED (NORMAL); TARGET CELLS MOD
[2017-02-16 05:46] LABS: HEMATOCRIT 23.9 % (35.0-45.0); HEMOGLOBIN 8.1 gm/dL (12.0-16.0); MEAN CELL VOLUME 108.6 FL (83-96); MEAN CORPUSCULAR HEMOGLOBIN 36.9 PG (28-34); MEAN PLATELET VOLUME 8.6 FL (6.5-11.5); RED BLOOD COUNT 2.2 X10e (3.90-5.30); RED CELL DISTRIBUTION WIDTH 22.9 % (11.0-15.5); WHITE BLOOD COUNT 9.9 X10e3 (4.0-10.5)
[2017-02-16 05:56] LABS: INR 1.5
[2017-02-16 06:47] LABS: BILIRUBIN,TOTAL 20.1 mg/dL (0.2-2.0); BUN/CREATININE RATIO 21.66; CALCIUM SERUM 8.5 mg/dL (8.4-10.2); CREATININE SERUM 0.6 mg/dL (0.6-1.4); GLOM FILT RATE Estimated 110.9 mL/min (>60); MAGNESIUM 1.8 mg/dL (1.6-3.0); PHOSPHOROUS 2.7 mg/dL (2.5-4.6); POTASSIUM 3.4 mmol/L (3.5-5.1); PROTEIN TOTAL SERUM 5.9 g/dL (6.0-8.3)
[2017-02-17 06:01] LABS: HEMATOCRIT 23.6 % (35.0-45.0); MEAN CELL VOLUME 108.9 FL (83-96); MEAN CORPUSCULAR HEMOGLOBIN 36.7 PG (28-34); MEAN CORPUSCULAR HGB CONC 33.7 g/dL (30-36); MEAN PLATELET VOLUME 8.6 FL (6.5-11.5); RED BLOOD COUNT 2.17 X10e (3.90-5.30); WHITE BLOOD COUNT 10.2 X10e3 (4.0-10.5)
[2017-02-17 06:33] LABS: FREE T3 2.1 pg/mL (2.5-3.9)
[2017-02-17 06:34] LABS: FREE THYROXIN (T4) 0.94 ng/dL (0.58-1.64)
[2017-02-17 07:00] LABS: BILIRUBIN,TOTAL 20.2 mg/dL (0.2-2.0); CALCIUM SERUM 8.7 mg/dL (8.4-10.2); CREATININE SERUM 0.6 mg/dL (0.6-1.4); GLOM FILT RATE Estimated 110.9 mL/min (>60); MAGNESIUM 1.5 mg/dL (1.6-3.0); PHOSPHOROUS 2.7 mg/dL (2.5-4.6); POTASSIUM 3.5 mmol/L (3.5-5.1); PROTEIN TOTAL SERUM 6.1 g/dL (6.0-8.3)
[2017-02-17 07:17] LABS: OSMOLALITY,URINE 519 mOsmo/kg (250-900)
[2017-02-17 07:18] LABS: SODIUM URINE RANDOM <10 mmol/L
[2017-02-17] MEDS ORDERED: LACTULOSE20 GM/30 M PO (19:23)
[2017-02-17] MEDS ORDERED: FUROSEMIDE40 MG PO (19:37)
[2017-02-17] MEDS ORDERED: COUGH SYRU100 MG/5 M PO (19:37)
[2017-02-17] MEDS ORDERED: ALDACTONE100 MG PO (19:38)
[2017-02-17] MEDS ORDERED: LEVOTHYROXINE25 MC1 PO (19:39)
[2017-02-17] MEDS ORDERED: K-DUR20 ME1 PO (19:39)
[2017-02-17] MEDS ORDERED: FOLIC ACID1 MG PO (19:40)
[2017-02-17] MEDS ORDERED: ALBUTEROL17 GM INH (19:41)
[2017-02-19 15:55] LABS: ANA SCREEN Positive (Negative); ANA TITER COMMENT Has been added (()); HA AB IGM (HEPPAN) Nonreactive (()); HB CORE AB IGM (HEPPAN) Nonreactive (Nonreactive); HB S AG (HEPPAN) Nonreactive (Nonreactive); HEP C AB (HEPPAN) Nonreactive (Nonreactive); HEP C AB SIGNAL TO CUTOFF 0.08 ratio (<1.00); NUCLEAR PATTERN (ANA) Homogeneous (())
[2017-02-20 14:20] LABS: ANA SCREEN Negative (Negative)
== END 2017-02-17 20:30 | disposition home or self-care (01) | DRG 432 ==
LOC: SED 10:50 → CEDOF 15:36 → SED 15:36 → CEDOF 19:32 → C5C 19:32 → CEDOF 20:45 → C5C 20:45
PROVIDERS: Emergency Medicine; Internal Medicine; Internal Medicine Gastroenterology; Internal Medicine Nephrology; Surgery
PROC: 0DJ08ZZ Inspection of Upper Intestinal Tract, Via Natural or Artificial Opening Endoscopic (ICD-10-PCS; 2017-02-12)
PROC: B246YZZ Ultrasonography of Right and Left Heart using Other Contrast (ICD-10-PCS; 2017-02-14)
PROC: 02HV33Z Insertion of Infusion Device into Superior Vena Cava, Percutaneous Approach (ICD-10-PCS; 2017-02-15)
PROC: B518YZA Fluoroscopy of Superior Vena Cava using Other Contrast, Guidance (ICD-10-PCS; 2017-02-15)
PROC: 30233N1 Transfusion of Nonautologous Red Blood Cells into Peripheral Vein, Percutaneous Approach (ICD-10-PCS; principal; 2017-02-16 15:17)
DX: K70.30 Alcoholic cirrhosis of liver without ascites (principal); E43 Unspecified severe protein-calorie malnutrition; E87.0 Hyperosmolality and hypernatremia; D68.9 Coagulation defect, unspecified; E87.2 Acidosis; K72.90 Hepatic failure, unspecified without coma; K85.90 Acute pancreatitis without necrosis or infection, unspecified; E83.42 Hypomagnesemia; E87.70 Fluid overload, unspecified; D50.9 Iron deficiency anemia, unspecified; E87.6 Hypokalemia; F10.20 Alcohol dependence, uncomplicated; E03.9 Hypothyroidism, unspecified; Z85.528 Personal history of other malignant neoplasm of kidney; E66.01 Morbid (severe) obesity due to excess calories; L40.9 Psoriasis, unspecified; Z98.84 Bariatric surgery status; K75.81 Nonalcoholic steatohepatitis (NASH)
CPT/HCPCS: 36415; 71020; 74177; 76705; 76937; 77001; 78226; 80048; 80053; 80074; 80076; 80307; 81003; 82105; 82140; 82150; 82607; 82728; 82746; 83516; 83540; 83550; 83605; 83690; 83735; 83880; 83930; 83935; 84100; 84300; 84439; 84443; 84481; 85025; 85027; 85044; 85610; 85730; 86038; 86039; 86850; 86900; 86901; 86923; 87086; 93005; 93306; 93970; 94760; 96360; 96361; 99285; A9537; C1751; J3475; P9016; Q9967

== ENCOUNTER → 2017-03-04 | Outpatient (CLI) | payer BC ==
[~2017-03-04] MED LIST: ALBUTEROL17 GM INH; ALDACTONE100 MG PO; COUGH SYRU100 MG/5 M PO; FOLIC ACID1 MG PO; FUROSEMIDE40 MG PO; K-DUR20 ME1 PO; LACTULOSE20 GM/30 M PO; LEVOTHYROXINE25 MC1 PO; NO MEDICATIONS
[2017-03-04 15:01] LABS: HEMOGLOBIN 8.6 gm/dL (12.0-16.0); MEAN CELL VOLUME 105.1 FL (83-96); MEAN CORPUSCULAR HEMOGLOBIN 34.6 PG (28-34); MEAN CORPUSCULAR HGB CONC 32.9 g/dL (30-36); RED BLOOD COUNT 2.47 X10e (3.90-5.30); RED CELL DISTRIBUTION WIDTH 17.2 % (11.0-15.5); WHITE BLOOD COUNT 7.2 X10e3 (4.0-10.5)
[2017-03-04 15:22] LABS: INR 1.4; PROTHROMBIN TIME (PATIENT) 15.4 SECONDS (10.0-11.7)
[2017-03-04 15:36] LABS: ALBUMIN SERUM 2.4 g/dL (3.5-5.0); BILIRUBIN,TOTAL 10.2 mg/dL (0.2-2.0); BUN/CREATININE RATIO 11.11; CALCIUM SERUM 8.3 mg/dL (8.4-10.2); CREATININE SERUM 0.9 mg/dL (0.6-1.4); GLOM FILT RATE Estimated 77.8 mL/min (>60); POTASSIUM 3.8 mmol/L (3.5-5.1); PROTEIN TOTAL SERUM 6.6 g/dL (6.0-8.3)
== END | disposition home or self-care (01) ==
LOC: CLAB 13:49
PROVIDERS: Nurse Practitioner
DX: K70.30 Alcoholic cirrhosis of liver without ascites (principal)
CPT/HCPCS: 36415; 80053; 85027; 85610

== ENCOUNTER → 2017-03-31 | Outpatient (CLI) | payer BC ==
[2017-03-31 14:07] LABS: HEMATOCRIT 25.5 % (35.0-45.0); HEMOGLOBIN 8.7 gm/dL (12.0-16.0); MEAN CELL VOLUME 93.5 FL (83-96); MEAN CORPUSCULAR HEMOGLOBIN 31.7 PG (28-34); MEAN PLATELET VOLUME 7.4 FL (6.5-11.5); RED BLOOD COUNT 2.73 X10e (3.90-5.30); RED CELL DISTRIBUTION WIDTH 15.7 % (11.0-15.5); WHITE BLOOD COUNT 3.8 X10e3 (4.0-10.5)
[2017-03-31 14:26] LABS: INR 1.3; PROTHROMBIN TIME (PATIENT) 13.8 SECONDS (10.0-11.7)
[2017-03-31 15:34] LABS: ALBUMIN SERUM 2.6 g/dL (3.5-5.0); BILIRUBIN,TOTAL 4.8 mg/dL (0.2-2.0); BUN/CREATININE RATIO 14.44; CALCIUM SERUM 8.3 mg/dL (8.4-10.2); CREATININE SERUM 0.9 mg/dL (0.6-1.4); GLOM FILT RATE Estimated 77.8 mL/min (>60); POTASSIUM 4.3 mmol/L (3.5-5.1); PROTEIN TOTAL SERUM 7.7 g/dL (6.0-8.3)
== END | disposition home or self-care (01) ==
LOC: CLAB 13:42
PROVIDERS: Nurse Practitioner
DX: K70.10 Alcoholic hepatitis without ascites (principal)
CPT/HCPCS: 36415; 80053; 85027; 85610